=== PATIENT | female | born 1985 | race Caucasian/White ===

== ENCOUNTER 2016-06-24 13:14 | Emergency (ER) | payer MEDICAID, OTHER ==
[~2016-06-24] VITALS: Ht 160 cm; Wt 85.8 kg
[~2016-06-24 13:14] MED LIST: ARIP1TAB46 PO; BUSP10TA8 PO; TOPI50TA4 PO
[2016-06-24 13:16] VITALS: BP 135/82; PULSE 120; RESP 20; TEMP 98.3; O2SAT 96
[2016-06-24] MEDS ORDERED: methylPREDNISolone SOD SUCC 125 MG/2 ML VIAL IM ONE (16:30)
--- NOTE | 2016-06-24 16:33 | PD ---
HPI Chief Complaint: Oral / Dental Pain or Problem Time Seen by Provider: 16:27 Travel History International Travel<30 days: No Contact w/Intl Traveler<30days: No Traveled to known affect area: No History of Present Illness HPI Patient is a 31-year-old female presenting to the emergency department for evaluation of sore throat, nausea, abdominal cramping, fatigue, subjective fevers. Patient states she believes it started with a toothache, she reports the toothache started approximately one month ago however for the last 3-5 days she's had increasing throat pain, difficulty swallowing, subjective fevers, neck pain. PFSH Past Medical History ADD: Yes Bipolar Disorder: Yes Anxiety: Yes Depression: Yes Cancer: No Diabetes: No Diminished Hearing: No Psychiatric: Yes (HX HBS INPT) Seizures: No Thyroid Disease: No Ulcer: No ?: Unknown LMP: 06/06/2016 Menopausal: No : 2 Para: 1 Miscarriage: 1 Ovarian Cysts: Yes Past Surgical History Other Surgery: No Social History Alcohol Use: No Tobacco Use: Yes Substance Use: No Allergies-Medications (Allergen,Severity, Reaction): Coded Allergies: Benadryl (Verified Allergy, Severe, Hives, 06/24/16) Erythromycin (Verified Allergy, Severe, 06/24/16) Latex (Verified Allergy, Severe, Hives, 06/24/16) Sulfa (Verified Allergy, Severe, 06/24/16) Morphine (Verified Allergy, Intermediate, rash, 06/24/16) Reported Meds & Prescriptions Reported Meds & Active Scripts Active Tramadol (Tramadol HCl) 50 Mg Tab 50 Mg PO Q6H PRN Augmentin (Amoxicillin-Clavulanate) 875-125 mg Tab 875 Mg PO BID 10 Days not for use in CrCl <30 ml/min. Review of Systems Except as stated in HPI: all other systems reviewed are Neg General / Constitutional: Positive: Fever, Chills, Other (fatigue) HENT: Positive: Headaches, Sore Throat, Neck Pain Cardiovascular: No: Chest Pain or Discomfort Respiratory: No: Shortness of Breath Gastrointestinal: Positive: Nausea, Abdominal Pain (cramping), No: Vomiting, Diarrhea Musculoskeletal: Positive: Myalgias Physical Exam Narrative GENERAL: Overweight, well-developed, alert female. Appears uncomfortable, in no acute distress. SKIN: Warm and dry. HEAD: Atraumatic. Normocephalic. EYES: Pupils equal and round. No scleral icterus. No injection or drainage. ENT: No nasal bleeding or discharge. Mucous membranes pink and moist. Edema noted to posterior pharynx on the right, exudates noted. NECK: Trachea midline. No JVD. Submandibular and cervical lymphadenopathy noted. CARDIOVASCULAR: Tachycardic. No murmur appreciated. RESPIRATORY: No accessory muscle use. Clear to auscultation. Breath sounds equal bilaterally. No stridor noted. GASTROINTESTINAL: Abdomen soft, non-tender, nondistended. Hepatic and splenic margins not palpable. MUSCULOSKELETAL: No obvious deformities. No clubbing. No cyanosis. No edema. NEUROLOGICAL: Awake and alert. No obvious cranial nerve deficits. Motor grossly within normal limits. Normal speech. PSYCHIATRIC: Appropriate mood and affect; insight and judgment normal. Data Data Last Documented VS Vital Signs Date Time Temp Pulse Resp B/P Pulse Ox O2 Delivery O2 Flow Rate FiO2 06/24/16 19:09 16 06/24/16 17:01 103 131/82 96 Room Air 06/24/16 13:16 98.3 Orders Soft Tissue Neck (06/24/16 ) Complete Blood Count With Diff (06/24/16 16:23) Comprehensive Metabolic Panel (06/24/16 16:23) Methylprednisolone So Succ Inj (Solumedr (06/24/16 16:30) Group A Rapid Strep Screen (06/24/16 16:28) Clindamycin Inj (Cleocin Inj) (06/24/16 17:30) Morphine Inj (Morphine Inj) (06/24/16 17:30) Ketorolac Inj (Toradol Inj) (06/24/16 17:30) Sodium Chlor 0.9% 1000 Ml Inj (Ns 1000 M (06/24/16 17:30) Ct Soft Tiss Neck W Iv Cont (06/24/16 ) Ed Urine Pregnancytest Poc (06/24/16 17:43) Iodixanol 320 Inj (Rad Ct) (Visipaque 32 (06/24/16 18:17) Amoxicil-Clavulanate (Augmentin) (06/24/16 19:15) Labs Laboratory Tests Test 06/24/16 16:37 White Blood Count 17.7 TH/MM3 Red Blood Count 4.61 MIL/MM3 Hemoglobin 12.4 GM/DL Hematocrit 37.7 % Mean Corpuscular Volume 81.9 FL Mean Corpuscular Hemoglobin 27.0 PG Mean Corpuscular Hemoglobin 33.0 % Concent Red Cell Distribution Width 14.1 % Platelet Count 323 TH/MM3 Mean Platelet Volume 8.5 FL Neutrophils (%) (Auto) 76.1 % Lymphocytes (%) (Auto) 12.1 % Monocytes (%) (Auto) 10.9 % Eosinophils (%) (Auto) 0.8 % Basophils (%) (Auto) 0.1 % Neutrophils # (Auto) 13.5 TH/MM3 Lymphocytes # (Auto) 2.1 TH/MM3 Monocytes # (Auto) 1.9 TH/MM3 Eosinophils # (Auto) 0.1 TH/MM3 Basophils # (Auto) 0.0 TH/MM3 CBC Comment DIFF FINAL Differential Comment Sodium Level 137 MEQ/L Potassium Level 3.8 MEQ/L Chloride Level 104 MEQ/L Carbon Dioxide Level 24.4 MEQ/L Anion Gap 9 MEQ/L Blood Urea Nitrogen 7 MG/DL Creatinine 0.71 MG/DL Estimat Glomerular Filtration 97 ML/MIN Rate Random Glucose 96 MG/DL Calcium Level 8.8 MG/DL Total Bilirubin 0.4 MG/DL Aspartate Amino Transf 13 U/L (AST/SGOT) Alanine Aminotransferase 22 U/L (ALT/SGPT) Alkaline Phosphatase 75 U/L Total Protein 8.1 GM/DL Albumin 4.0 GM/DL MDM Medical Decision Making Medical Screen Exam Complete: Yes Emergency Medical Condition: Yes Interpretation(s) Vital Signs Date Time Temp Pulse Resp B/P Pulse Ox O2 Delivery O2 Flow Rate FiO2 06/24/16 13:16 98.3 120 20 135/82 96 Room Air Differential Diagnosis Strep pharyngitis versus peritonsillar abscess versus cellulitis versus other Narrative Course Patient is a 31-year-old female presenting to emergency Department for evaluation of a sore throat. On physical examination the right posterior pharynx is significantly edematous, exudates noted. Patient's airway is patent , she is having difficulty swallowing and controlling her secretions. Solu- Medrol IM ordered. Labs and imaging ordered and pending. Treatment initiated in triage, care patient will be transferred to provider when a medical bed is available. Scripts Tramadol 50 Mg Tab50 Mg PO Q6H PRN (PAIN) #12 TAB Ref 0 Prov:Yehuda Ferris MD 06/24/16 Amoxicillin-Clavulanate (Augmentin)875-125 mg Uuc667 Mg PO BID 10 Days Ref 0 not for use in CrCl <30 ml/min. Prov:Yehuda Ferris MD 06/24/16 Griselda Betancourt Jun 24, 2016 16:32
[2016-06-24 16:48] LABS: AUTOMATED NEUTROPHIL # 13.5 TH/MM3 (1.8-7.7); BASOPHIL % 0.1 % (0.0-2.0); EOSINOPHIL # 0.1 TH/MM3 (0-0.4); EOSINOPHIL % 0.8 % (0.0-4.0); HEMATOCRIT 37.7 % (35.0-46.0); HEMO FLAGS DIFF FINAL; LYMPH % 12.1 % (9.0-44.0); LYMPHOCYTE # 2.1 TH/MM3 (1.0-4.8); MEAN CELL VOLUME 81.9 FL (80.0-100.0); MONO % 10.9 % (0.0-8.0); NEUT % 76.1 % (16.0-70.0); PLATELET COUNT 323 TH/MM3 (150-450); RED BLOOD COUNT 4.61 MIL/MM3 (4.00-5.30); RED CELL DISTRIBUTION WIDTH 14.1 % (11.6-17.2); WHITE BLOOD COUNT 17.7 TH/MM3 (4.0-11.0)
[2016-06-24 17:01] VITALS: BP 131/82; PULSE 103; RESP 18; O2SAT 96
[2016-06-24 17:02] LABS: ANION GAP 9 MEQ/L (5-15); AST (GOT) 13 U/L (15-37); BICARBONATE 24.4 MEQ/L (21.0-32.0); BLOOD UREA NITROGEN 7 MG/DL (7-18); CHLORIDE 104 MEQ/L (98-107); GLOMERULAR FILTRATION RATE 97 ML/MIN (>89); POTASSIUM 3.8 MEQ/L (3.5-5.1); SODIUM (NA) 137 MEQ/L (136-145)
[2016-06-24 17:05] LABS: ALKALINE PHOSPHATASE 75 U/L (45-117); ALT (GPT) 22 U/L (10-53); TOTAL BILIRUBIN ADULT 0.4 MG/DL (0.2-1.0)
[2016-06-24] MEDS ORDERED: KETOROLAC TROMETHAMINE 30 MG/ML (IVP) VIAL IV PUSH ONE (17:30)
[2016-06-24] MEDS ORDERED: SODIUM CHLOR 0.9% 1000 ML INJ 1,000 ML IV ONE (17:30)
[2016-06-24] MEDS ORDERED: MORPHINE SULFATE 4 MG/ML INJ IV PUSH ONE (17:30)
[2016-06-24] MEDS ORDERED: CLINDAMYCIN INJ 600 MG in SODIUM CHLORIDE 0.9% INJ 100 ML IV ONE (17:30)
--- NOTE | 2016-06-24 17:39 | RADRPT ---
EXAM DATE/TIME: 06/24/2016 16:40 [facility] COMPARISON: No previous studies available for comparison. INDICATIONS : Right throat abscess. MEDICAL HISTORY : None. SURGICAL HISTORY : None. ENCOUNTER: Initial ACUITY: 2 days PAIN SCORE: 3/10 LOCATION: Right throat. FINDINGS: AP and lateral views of the neck soft tissues demonstrates no prevertebral soft tissue swelling. Epig lottis does not appear thickened. Air is present within the laryngeal ventricle. No radiopaque foreig n body is identified. Visualized osseous structures demonstrate no abnormality. CONCLUSION: No acute finding is identified. Yovany Youssef MD on June 24, 2016 at 17:37 Board Certified Radiologist. This report was verified electronically.
[2016-06-24] MEDS ORDERED: IODIXANOL 320 MG/ML 10 ML VIAL (for Rad CT) IV ONE (18:17)
--- NOTE | 2016-06-24 18:31 | RADRPT ---
EXAM DATE/TIME: 06/24/2016 18:01 [facility] COMPARISON: No previous studies available for comparison. INDICATIONS : Swelling in mouth and throat with nausea. IV CONTRAST: 65 cc Visipaque (iodixanol) IV RADIATION DOSE: 24.09 CTDIvol (mGy) MEDICAL HISTORY : None SURGICAL HISTORY : None. ENCOUNTER: Initial ACUITY: 1 day PAIN SCALE: 5/10 LOCATION: neck TECHNIQUE: Volumetric scanning of the neck was performed. Using automated exposure control and adjustment of th e mA and/or kV according to patient size, radiation dose was kept as low as reasonably achievable to obtain optimal diagnostic quality images. FINDINGS: NASOPHARYNX: Bilateral adenoids are swollen. There is also mild thickening of the uvula. OROPHARYNX: The intrinsic muscles of the tongue are symmetric. The tonsillar pillars are intact. The prevertebr al soft tissues are not thickened. LARYNX: The supraglottic, glottic, and infraglottic structures are intact. PARAPHARYNGEAL: The parapharyngeal space is intact. SALIVARY GLANDS: The parotid and submandibular glands are intact. LYMPH NODES: No enlarged or necrotic-appearing nodes. THYROID: Homogeneous enhancement without evidence of nodule. BONES: Unremarkable. CONCLUSION: Probable pharyngitis/adenitis.. No perceptible abscess. Yovany Dimas MD on June 24, 2016 at 18:27 Board Certified Radiologist. This report was verified electronically.
[2016-06-24 19:09] VITALS: RESP 16
[2016-06-24] MEDS ORDERED: AUGM875T PO (19:09)
[2016-06-24] MEDS ORDERED: TRAM50TA PO (19:09)
--- NOTE | 2016-06-24 19:09 | PD ---
Physical Exam Narrative The patient was initially evaluated in triage by my PA and was placed in a medical bed when it became available. See her note for further details. Data Data Last Documented VS Vital Signs Date Time Temp Pulse Resp B/P Pulse Ox O2 Delivery O2 Flow Rate FiO2 06/24/16 17:01 103 18 131/82 96 Room Air 06/24/16 13:16 98.3 Orders Soft Tissue Neck (06/24/16 ) Complete Blood Count With Diff (06/24/16 16:23) Comprehensive Metabolic Panel (06/24/16 16:23) Methylprednisolone So Succ Inj (Solumedr (06/24/16 16:30) Group A Rapid Strep Screen (06/24/16 16:28) Clindamycin Inj (Cleocin Inj) (06/24/16 17:30) Morphine Inj (Morphine Inj) (06/24/16 17:30) Ketorolac Inj (Toradol Inj) (06/24/16 17:30) Sodium Chlor 0.9% 1000 Ml Inj (Ns 1000 M (06/24/16 17:30) Ct Soft Tiss Neck W Iv Cont (06/24/16 ) Ed Urine Pregnancytest Poc (06/24/16 17:43) Iodixanol 320 Inj (Rad Ct) (Visipaque 32 (06/24/16 18:17) Amoxicil-Clavulanate (Augmentin) (06/24/16 19:15) Labs Laboratory Tests Test 06/24/16 16:37 White Blood Count 17.7 TH/MM3 Red Blood Count 4.61 MIL/MM3 Hemoglobin 12.4 GM/DL Hematocrit 37.7 % Mean Corpuscular Volume 81.9 FL Mean Corpuscular Hemoglobin 27.0 PG Mean Corpuscular Hemoglobin 33.0 % Concent Red Cell Distribution Width 14.1 % Platelet Count 323 TH/MM3 Mean Platelet Volume 8.5 FL Neutrophils (%) (Auto) 76.1 % Lymphocytes (%) (Auto) 12.1 % Monocytes (%) (Auto) 10.9 % Eosinophils (%) (Auto) 0.8 % Basophils (%) (Auto) 0.1 % Neutrophils # (Auto) 13.5 TH/MM3 Lymphocytes # (Auto) 2.1 TH/MM3 Monocytes # (Auto) 1.9 TH/MM3 Eosinophils # (Auto) 0.1 TH/MM3 Basophils # (Auto) 0.0 TH/MM3 CBC Comment DIFF FINAL Differential Comment Sodium Level 137 MEQ/L Potassium Level 3.8 MEQ/L Chloride Level 104 MEQ/L Carbon Dioxide Level 24.4 MEQ/L Anion Gap 9 MEQ/L Blood Urea Nitrogen 7 MG/DL Creatinine 0.71 MG/DL Estimat Glomerular Filtration 97 ML/MIN Rate Random Glucose 96 MG/DL Calcium Level 8.8 MG/DL Total Bilirubin 0.4 MG/DL Aspartate Amino Transf 13 U/L (AST/SGOT) Alanine Aminotransferase 22 U/L (ALT/SGPT) Alkaline Phosphatase 75 U/L Total Protein 8.1 GM/DL Albumin 4.0 GM/DL MDM Supervised Visit with CHRISTI: No Narrative Course I, Dr. Ferris, have reviewed the advance practice practitioner's documentation and am in agreement, met with the patient face to face, made the diagnosis, and the medical decision making was done by me. See her note for further details. Briefly this a 31-year-old female who is here for evaluation of throat pain. On physical exam the patient has enlarged tonsils bilaterally with bilateral tonsillar exudates. Uvula is midline. Initial vital signs show heart rate of 120, blood pressure 135/82, pulse ox 96% on room air, oral temp of 98.2F. Heart rate improved with a liter of normal saline. The patient was given a dose of IV Solu-Medrol and reports significant improvement in symptoms. She is able to swallow and tolerate her secretions. There is no drooling or stridor on physical exam. CBC is remarkable for WBC 17.7 with 76% neutrophils. CMP is unremarkable. Group A strep is positive. X-ray soft tissue neck read as unremarkable exam. CT neck shows probable pharyngitis/adenitis. No perceptible abscess. Patient was given a dose of IV clindamycin. She is stable for discharge home. She does not have insurance. She will be started on Augmentin. She was instructed to follow-up with a primary care physician this week. She was informed on when to return to the emergency department. She verbalizes understanding and agreement with plan. Diagnosis Primary Impression: Strep pharyngitis Referrals: Primary Care Physician 3 days Additional Instruction: Follow-up with a primary care physician this week. Take medications as prescribed. Return to the emergency department for worsening symptoms or any other concerns. Scripts Tramadol 50 Mg Tab50 Mg PO Q6H PRN (PAIN) #12 TAB Ref 0 Prov:Yehuda Ferris MD 06/24/16 Amoxicillin-Clavulanate (Augmentin)875-125 mg [id number] Mg PO BID 10 Days Ref 0 not for use in CrCl <30 ml/min. Prov:Yehuda Ferris MD 06/24/16 Disposition: 01 DISCHARGE HOME Condition: Stable Yehuda Ferris MD Jun 24, 2016 19:09
[2016-06-24] MEDS ORDERED: AMOXICILLIN/CLAVULANATE K 875 MG TAB PO ONE (19:15)
== END 2016-06-24 19:57 | disposition home or self-care (01) ==
LOC: NEPA 13:14
DX: J02.0 Streptococcal pharyngitis (principal); B95.0 Streptococcus, group A, as the cause of diseases classified elsewhere; F31.9 Bipolar disorder, unspecified; F41.8 Other specified anxiety disorders
CPT/HCPCS: 70360; 70491; 80053; 84703; 85025; 87880; 96365; 96372; 96375; 99284; J1885; J2930; J7030; Q9967

== ENCOUNTER 2016-12-26 10:59 | Emergency (ER) | payer MEDICAID ==
[~2016-12-26] VITALS: Ht 160 cm; Wt 85.0 kg
[~2016-12-26 10:59] MED LIST changes: -ARIP1TAB46 PO; +AUGM875T PO; -BUSP10TA8 PO; -TOPI50TA4 PO; +TRAM50TA PO
[2016-12-26 11:01] VITALS: BP 132/79; PULSE 130; RESP 20; TEMP 98.8; O2SAT 98
[2016-12-26 11:08] VITALS: PULSE 120; RESP 20
--- NOTE | 2016-12-26 11:08 | PD ---
Physical Exam Date Seen by Provider: Dec 26, 2016 Time Seen by Provider: 11:06 Narrative 31 yowf cut l little finger with a knife. utd with shoots waiting for bed placement. vs noted Data Data Last Documented VS Vital Signs Date Time Temp Pulse Resp B/P (MAP) Pulse Ox O2 Delivery O2 Flow Rate FiO2 12/26/16 11:01 98.8 130 20 132/79 (96) 98 Room Air MDM Medical Record Reviewed: No Supervised Visit with CHRISTI: Yes Cj Alexandra Dec 26, 2016 11:08
[2016-12-26] MEDS ORDERED: LIDOCAINE HCL 1% 50 ML VIAL INFIL ONE (11:45)
[2016-12-26] MEDS ORDERED: BUPIVACAINE HCL PF 0.5% 10 ML VIAL INFIL ONE (11:45)
[2016-12-26] MEDS ORDERED: IBUP800T23 PO (11:55)
[2016-12-26] MEDS ORDERED: CEPH-460 PO (11:57)
--- NOTE | 2016-12-26 11:57 | PD ---
HPI Chief Complaint: Laceration/Skin Injury Time Seen by Provider: 11:31 Travel History International Travel<30 days: No Contact w/Intl Traveler<30days: No Traveled to known affect area: No History of Present Illness HPI 31-year-old female presents emergency Department with complaint of a laceration to her left finger from a knife. Reports having up-to-date on her tetanus vaccination. Reports numbness and tingling to the finger, but denies loss of sensation. Denies decreased range of motion of the finger. Has not taken any medications to alleviate her symptoms. Bleeding is controlled with a bandage. Has no medical complaints. Symptoms are mild in severity. Allergies to sulfa, Anadrol, erythromycin-based medications, latex, morphine. No other modifying factors or associated signs and symptoms. PFSH Past Medical History ADD: Yes Bipolar Disorder: Yes Anxiety: Yes Depression: Yes Cancer: No Diabetes: No Diminished Hearing: No Psychiatric: Yes (HX HBS INPT) Seizures: No Thyroid Disease: No Ulcer: No ?: Not LMP: 12/17/16 Menopausal: No : 2 Para: 1 Miscarriage: 1 Ovarian Cysts: Yes Past Surgical History Other Surgery: No Social History Alcohol Use: No Tobacco Use: Yes Substance Use: No Allergies-Medications (Allergen,Severity, Reaction): Coded Allergies: Sulfa (Sulfonamide Antibiotics) (Verified Allergy, Severe, 12/26/16) diphenhydramine (Verified Allergy, Severe, Hives, 12/26/16) erythromycin base (Verified Allergy, Severe, 12/26/16) latex (Verified Allergy, Severe, Hives, 12/26/16) morphine (Verified Allergy, Intermediate, rash, 12/26/16) Reported Meds & Prescriptions Reported Meds & Active Scripts Active Keflex (Cephalexin) 500 Mg Cap 500 Mg PO Q8H 7 Days Ibuprofen 800 Mg Tab 800 Mg PO Q6HR PRN Tramadol (Tramadol HCl) 50 Mg Tab 50 Mg PO Q6H PRN Augmentin (Amoxicillin-Clavulanate) 875-125 mg Tab 875 Mg PO BID 10 Days not for use in CrCl <30 ml/min. Review of Systems Except as stated in HPI: all other systems reviewed are Neg Physical Exam Narrative GENERAL: Well-nourished, well-developed female patient, in no acute distress SKIN: Warm and dry. Left fifth finger with laceration to the fall are, medial aspect in between the PIP and DIP joints that is approximately 1.5 cm; breathing controlled finger with full range of motion and good opposition,: Less than 3 second cap refill and sensory intact. HEAD: Atraumatic. Normocephalic. EYES: Pupils equal and round. No scleral icterus. No injection or drainage. ENT: Mucosa pink and moist. Airway patent. NECK: Trachea midline. CARDIOVASCULAR: Regular rate. RESPIRATORY: No accessory muscle use. GASTROINTESTINAL: Obese. MUSCULOSKELETAL: No obvious deformities. No clubbing. No cyanosis. No edema. NEUROLOGICAL: Awake and alert. Oriented 3. No obvious cranial nerve deficits. Motor grossly within normal limits. Normal speech. PSYCHIATRIC: Appropriate mood and affect; insight and judgment normal. Data Data Last Documented VS Vital Signs Date Time Temp Pulse Resp B/P (MAP) Pulse Ox O2 Delivery O2 Flow Rate FiO2 12/26/16 11:08 120 20 12/26/16 11:01 98.8 98 Room Air Orders Orders Bupivacaine Pf 0.5% Inj (Marcaine Pf 0.5 (12/26/16 11:45) Lidocaine 1% Inj (50 Ml) (Xylocaine 1% I (12/26/16 11:45) Wound Care (12/26/16 12:53) MDM Medical Decision Making Medical Screen Exam Complete: Yes Emergency Medical Condition: Yes Medical Record Reviewed: Yes Differential Diagnosis Laceration, contusion, abrasion Narrative Course 31-year-old female with laceration to her left pinky finger. Symmetric procedure note for laceration repair. Tetanus is up-to-date. Ibuprofen prescribed for home. Instructed patient to return to the emergency department or follow-up with primary care provider in 7-10 days for suture removal. Instructed patient to follow up with primary care provider. Patient verbalizes understanding and agreement with treatment plan. Patient is medically cleared and stable for discharge. Discussed reasons to return to the emergency department. Patient agrees with treatment plan. The patients vital signs are stable and the patient is stable for outpatient follow-up and treatment. Patient discharged home, stable and in no acute distress. Procedures Procedure Narrative LACERATION LOCATION: Left pinky LENGTH: 1-1/2 cm NUMBER OF STITCHES/SHAN: 3 simple interrupted stitches REPAIR: The area of the laceration was prepped with Betadine and sterilely draped. The left pinky was digitally blocked with 1% lidocaine and 0.5% bupivacaine. The wound was copiously irrigated and explored without evidence of foreign body, tendon injury or neurovascular injury. The wound was closed using 4-0 Prolene. This was a single layer repair. A sterile dressing was applied. The patient was advised to keep the dressing clean and dry. Patient tolerated the procedure well. Diagnosis Primary Impression: Laceration of finger of left hand Qualified Codes: S61.217A - Laceration without foreign body of left little finger without damage to nail, initial encounter Referrals: [facility] Primary Care Physician Patient Instructions: Care For Your Stitches (ED), Finger Laceration (ED), General Instructions Departure Forms: Tests/Procedures, Work Release Enter return to work date: Dec 29, 2016 Additional Instructions: Keep area clean and dry Limit left pinky finger activity to decrease risk of sutures coming undone Ibuprofen every 6 hours as directed and as needed for pain Ice pack to area as needed to decrease pain Return to the emergency department or follow-up with primary care provider in 7- 10 days for suture removal Follow up with primary care provider within 2-4 days Return to the emergency department immediately with worsening of symptoms, particularly if reddened streaks up or down the affected extremity from the suture site, fever, numbness/tingling in the affected extremity, loss of sensation in the affected extremity, severe swelling of the affected Med/Other Pt SpecificInfo: Prescription(s) given Scripts Cephalexin (Keflex) 500 Mg Cap 500 MG PO Q8H for Infection for 7 Days, CAP 0 Refills Prov: Desi Solano 12/26/16 Ibuprofen (Ibuprofen) 800 Mg Tab 800 MG PO Q6HR Y for PAIN, #30 TAB 0 Refills Prov: Desi Solano 12/26/16 Disposition: 01 DISCHARGE HOME Condition: Stable Desi Solano Dec 26, 2016 11:57
== END 2016-12-26 13:00 | disposition home or self-care (01) ==
LOC: NEPK 10:59
DX: S61.217A Laceration without foreign body of left little finger without damage to nail, initial encounter (principal); W26.0XXA Contact with knife, initial encounter
CPT/HCPCS: 12001